=== PATIENT | male | born 1985 | race Caucasian/White ===

== ENCOUNTER 2024-02-02 04:00 | Day surgery (SDC) | payer OTHER ==
[~2024-02-02] VITALS: Ht 182.9 cm; Wt 81.0 kg
[2024-02-02] VITALS (187 sets, daily range): BP systolic 85–135; BP diastolic 49–90
--- NOTE | 2024-02-02 07:00 | NUR ---
Arrival & Pre-treatment Patient arrived to the ANR suite, identification and demographics confirmed. Patient to room 8, AAO, ambulatory, vitals obtained, ID/allergy/fall bands placed, changed into hospital gown, ZAC hose, and non-slip socks. Procedure and timeline explained for treatment and discharge. All questions answered and the patient presents no concerns at this time.
[2024-02-02] MEDS ORDERED: SCOPOLAMINE 1.5 MG DIS TD PRN (07:30)
[2024-02-02] MEDS ORDERED: PANTOPRAZOLE SODIUM Sesquihydr 40 MG/TAB PO PRN (07:30)
[2024-02-02] MEDS ORDERED: LACTATED RINGER'S 1,000 ML IV PRN ×3 (07:30→19:00)
[2024-02-02] MEDS ORDERED: cloNIDine HCL 0.1 MG/TAB PO PRN (07:30)
[2024-02-02] MEDS ORDERED: CYANOCOBALAMIN 500 MCG/TAB ( B12) PO PRN (07:30)
[2024-02-02] MEDS ORDERED: FAMOTIDINE 20 MG/TAB PO PRN (07:30)
[2024-02-02] MEDS ORDERED: ALBUTEROL SULFATE 2.5 MG VIAL IN PRN (07:30)
[2024-02-02] MEDS ORDERED: diazePAM 5 MG/TAB PO PRN ×2 (07:30→08:30)
--- NOTE | 2024-02-02 07:40 | NUR ---
Dr. Rivera telephoned with patient intake information including usage, dose, last dose/time taken and initial vital signs. Patient history and allergies reviewed with MD. Orders received for 10mg PO Valium and 0.1 mg PO Clonidine now. Will reassess per protocol in 1.5 hours and update MD with assessment and vitals. Patient medicated per MD orders. In addition to Clonidine and Valium, patient received 1000 mcg B12 PO, 20 mg Pepcid PO, and Scopolamine TD patch. Medication indication and education provided prior to administration.
[2024-02-02] MEDS ORDERED: ASCORBIC ACID 4,000 MG in SODIUM CHLORIDE 0.9% 1,000 ML IV SCH (08:00)
[2024-02-02 08:54] LABS: BASO% 0.5 % (0-3); EOS% 2.4 % (0-8); HEMATOCRIT 42.5 % (39.0-50.0); HEMOGLOBIN 13.9 g/dl (14.0-18.0); IMMATURE GRANULOCYTES 0.1 % (0.0-5.0); LYMPH% 23.6 % (15-41); MEAN CORPUSCULAR HGB 29.8 pG CALC (26.0-32.0); MEAN CORPUSCULAR HGB CONC 32.7 g/dL CAL (32.0-36.0); MONO% 11.9 % (2-13); NEUT# 5.34 thou/uL (1.82-7.42); NEUT% 61.5 % (42-76); RED BLOOD COUNT 4.67 mill/uL (4.70-6.10); RED CELL DISTRI WIDTH 11.9 % (11.5-15.5)
[2024-02-02] MEDS ORDERED: XANAX0.5 MG PO (09:06)
[2024-02-02 09:13] LABS: ALBUMIN 4.4 g/dL (3.2-5.0); BILIRUBIN, TOTAL 0.3 mg/dL (0.2-1.3); POTASSIUM 4.4 mmol/l (3.5-5.1); TOTAL PROTEIN 7.5 g/dL (6.3-8.2)
--- NOTE | 2024-02-02 09:23 | NUR ---
Patient resting comfortably in bed. Easily aroused, maintains focus, and drifts back to sleep. No signs of active withdrawal or distress noted at this time. Continuous SPO2, rhythm, and respiratory monitoring initiated. IVF @ 250 mL/HR, room air, VSS. DR. SUÁREZ AT THE BEDSIDE DISCUSSING PROCEDURE WITH PATIENT. QUESTIONS ASKED AND ANSWERED.
[2024-02-02] MEDS ORDERED: DEXAMETHASONE SODIUM PHOSPHATE PF 10 MG/ML SDV IV PRN ×2 (10:00→19:00)
[2024-02-02] MEDS ORDERED: cloNIDine HYDROCHLORIDE 100 MCG/ML 10 ML INJ IV PRN (10:00)
[2024-02-02] MEDS ORDERED: diazePAM 5 MG/TAB VT PRN (10:00)
[2024-02-02] MEDS ORDERED: LIDOCAINE HCL 1% (10MG/ML) 100 MG/10 ML MDV IV PRN (10:00)
[2024-02-02] MEDS ORDERED: MIDAZOLAM HCL 2 MG/2 ML VIAL IV PRN (10:00)
[2024-02-02] MEDS ORDERED: PROPOFOL 100 ML IV PRN (10:00)
[2024-02-02] MEDS ORDERED: NALTREXONE HCL 50 MG/TAB VT PRN (10:00)
[2024-02-02] MEDS ORDERED: ONDANSETRON HCl 4 MG/2 ML SDV IV PRN ×3 (10:00→19:00)
[2024-02-02] MEDS ORDERED: DiphenhydrAMINE HCL 50 MG/ML SDV IV PRN (10:00)
[2024-02-02] MEDS ORDERED: THIAMINE HCL 100 MG/ML 2ML VIAL IV PRN (10:00)
[2024-02-02] MEDS ORDERED: STERILE WATER FOR IRRIGATION 1,000 ML BTL IR PRN (10:00)
[2024-02-02] MEDS ORDERED: SUCCINYLCHOLINE CHLORIDE 20 MG/ML 10ML VIAL IV PRN (10:00)
[2024-02-02] MEDS ORDERED: ROCURONIUM BROMIDE 10 MG/ML 5ML VIAL IV PRN (10:00)
[2024-02-02] MEDS ORDERED: PROPOFOL 10 MG/ML 100ML VIAL IV PRN (10:00)
[2024-02-02] MEDS ORDERED: LIDOCAINE HCL 1% (10MG/ML) 100 MG/10 ML MDV VT PRN ×2 (10:00)
[2024-02-02] MEDS ORDERED: POTASSIUM CHLORIDE 10 MEQ/50 ML BAG IV PRN (10:00)
[2024-02-02] MEDS ORDERED: OCTREOTIDE ACETATE 100 MCG/VIAL SDV SC PRN (10:00)
[2024-02-02] MEDS ORDERED: MAGNESIUM SULFATE HEPTAHYDRATE 100 ML IV PRN (10:00)
[2024-02-02] MEDS ORDERED: cloNIDine HCL 0.1 MG/TAB VT PRN (10:00)
[2024-02-02] MEDS ORDERED: PHENYLEPHRINE HCL 10 MG/ML VIAL ONE (10:25)
[2024-02-02] MEDS ORDERED: SODIUM CHLORIDE 0.9% 250 ML IV ONE (10:25)
--- NOTE | 2024-02-02 10:30 | NUR ---
Dr. Rivera at bedside with patient discussing treatment and answering any questions or concerns patient might have.
--- NOTE | 2024-02-02 11:05 | NUR ---
Induction Note Patient to ANR procedure room. Time out performed at 1105. Patient placed on monitors, Ava hugger, bilateral wrist restraints applied for ET tube protection. Versed 5mg given IV push at 1110. Tourniquet applied to RIGHT arm Lidocaine 100mg given at 1111 IV push followed by Rocoronium 10mg at 1112 IV push and held for 90 seconds. Propofol bolus of 130mg given at 1114 IV push. Succinylcholine 80mg given IV push at 1115. Smooth intubation with 7.5 ETT. Positive CO2. Positive Auscultation for air exchange. Patient placed on ventilator for spontaneous ventilation. Placed on Propofol IV drip at 1116. OG inserted. Positive air on auscultation. Positive gastric content. Stomach washed at this time.
--- NOTE | 2024-02-02 11:30 | NUR ---
OG close note Stomach washed at this time. Naltrexone 50 mg with Clonidine 0.2 mg via OG tube. OG will be clamped for 45 minutes.
--- NOTE | 2024-02-02 12:15 | NUR ---
OG open note OG open at this time. Gastric content draining into drainage bag. OG to drain for 45 minutes. Propofol will be titrated down based on patient.
[2024-02-02] MEDS ORDERED: NALTREXONE50 MG PO (12:47)
[2024-02-02] MEDS ORDERED: CLONIDINE0.1 MG PO (12:47)
--- NOTE | 2024-02-02 13:00 | NUR ---
OG close note Stomach washed at this time. Naltrexone 50 mg with Clonidine 0.2 mg via OG tube. OG will be clamped for 45 minutes.
--- NOTE | 2024-02-02 14:30 | NUR ---
OG close note Stomach washed at this time. Naltrexone 50 mg with Clonidine 0.2 mg via OG tube. OG will be clamped for 45 minutes.
--- NOTE | 2024-02-02 16:15 | NUR ---
OG close note Stomach washed at this time. Naltrexone 0 mg with Clonidine 0.2 mg via OG tube. OG will be clamped for 30 minutes.
--- NOTE | 2024-02-02 16:45 | NUR ---
OG open note OG open at this time. Gastric content draining into drainage bag. OG to drain. Propofol will be titrated down based on patient.
--- NOTE | 2024-02-02 16:55 | NUR ---
Extubation note Closing medications given Benadryl 50mg IV push, Decadron 10mg IV push,Magnesium 4 grams IV, Zofran 8mg IV push, Octreotide 100mcg SC. Stomach washed out prior to extubation. Suctioned gastric content. OG removed. Patient extubated. Propofol Discontinued. Wrist restraints removed. Ava hugger Removed. See ANR Moderate sedate recovery record for further notes and assessment.
--- NOTE | 2024-02-02 17:09 | NUR ---
Patients spouse contacted with an update. questions asked and answered
--- NOTE | 2024-02-02 17:19 | NUR ---
TRANSER NOTE Patient transferred to medical-surgical unit.Report given to nurse at bedside. Head to toe assessment, treatment, medications, I/O, IV access reviewed with RN. All questions answered. IVF to continue at 100 ml/hr, NC @ 4L, no adventitious breath sounds. Safety precautions in place, bed locked and in lowest position, call light in reach. Handoff of care at the time this note.
--- NOTE | 2024-02-02 17:28 | NUR ---
avtar arrived to ms from anr beside report from Mannie; patient stable; vitals stable; on 2l 0f o2; breathing unlabored and even; no s.s of distress at this time; LR runnning at 100 on RAC; peronsal items in anr locker; eye covering applied to eyes; call light within reach; bedin lowest postion; saftey measures in place
[2024-02-02] MEDS ORDERED: ACETAMINOPHEN 1,000 MG/100 ML VIAL IV PRN (19:00)
[2024-02-02] MEDS ORDERED: LORazepam 2 MG/ML IV PRN ×2 (19:00)
[2024-02-02] MEDS ORDERED: ACETAMINOPHEN 500 MG TAB PO PRN (19:00)
[2024-02-02] MEDS ORDERED: PROMETHAZINE HCL 25 MG in SODIUM CHLORIDE 0.9% 50 ML IV PRN (19:00)
[2024-02-02] MEDS ORDERED: HALOPERIDOL LACTATE 5 MG/ML SDV IV PRN (19:00)
[2024-02-02] MEDS ORDERED: KETOROLAC TROMETHAMINE 30 MG/ML SDV IV PRN (19:00)
[2024-02-02] MEDS ORDERED: PROMETHAZINE HCL 12.5 MG in SODIUM CHLORIDE 0.9% 50 ML IV PRN (19:00)
[2024-02-02] MEDS ORDERED: PATIENT' OWN MED CONTROLLED 1 EA DOSE IV PRN (21:00)
[2024-02-02] MEDS ORDERED: cloNIDine HCL 0.1 MG/TAB PO SCH (23:00)
[2024-02-02] MEDS ORDERED: clonazePAM 1 MG/TAB PO PRN (23:00)
[2024-02-03] MEDS ORDERED: NALTREXONE HCL 50 MG/TAB PO ONE (00:45)
[2024-02-03 03:44] VITALS: BP 108/71
[2024-02-03] MEDS ORDERED: clonazePAM 1 MG/TAB PO PRN ×2 (04:00→08:00)
[2024-02-03] MEDS ORDERED: NALTREXONE HCL 50 MG/TAB PO SCH ×2 (04:00→08:30)
[2024-02-03] MEDS ORDERED: cloNIDine HCL 0.1 MG/TAB PO PRN (04:00)
--- NOTE | 2024-02-03 04:25 | NUR ---
ADMINSITERED SCHEDULED MEDS PER EMAR. PT TOLERATED WELL. PT IS A/O TO SELF AND PALCE, REORIENTATION NEEDED FOR TIME. PT STATES "FEELING LIKE CRAP" BUT ALSO STATED "I KNOW I WOULD FEEL WORSE IF I WAS ACTUALLY GOING THROUGH WITHDRAWAL" REMINDED PT THAT THIS NIGHT WAS THE HARDEST AND WILL HAVE IMPROVEMENTS EVERYTIME HE WAKES UP. PT DENIES AND N/V/P AT THIS TIME. PT IS ON RM AIR. VSS. HAS BEEN ABLE TO AMBULATE TO BATHROOM WITH STANDY BY ASSIST. PT CURRENTLY LAYING IN BED ON RT SIDE. IVF RUNNING PER EMAR. NO S/S OF DISTRESS. BED ALARM ON AND SAFETY PRECAUTIONS IN PLACE.
[2024-02-03 04:41] LABS: BASO% 0.1 % (0-3); HEMATOCRIT 36.8 % (39.0-50.0); HEMOGLOBIN 12.6 g/dl (14.0-18.0); IMMATURE GRANULOCYTES 0.1 % (0.0-5.0); LYMPH% 11.5 % (15-41); MEAN CORPUSCULAR HGB 30.1 pG CALC (26.0-32.0); MEAN CORPUSCULAR HGB CONC 34.2 g/dL CAL (32.0-36.0); MONO% 4.5 % (2-13); NEUT# 5.74 thou/uL (1.82-7.42); NEUT% 83.8 % (42-76); RED BLOOD COUNT 4.18 mill/uL (4.70-6.10); RED CELL DISTRI WIDTH 11.7 % (11.5-15.5)
[2024-02-03 04:53] LABS: ALBUMIN 3.7 g/dL (3.2-5.0); CREATININE 0.8 mg/dL (0.7-1.3); MAGNESIUM 2.2 mg/dL (1.6-2.3); POTASSIUM 4.2 mmol/l (3.5-5.1); TOTAL PROTEIN 6.4 g/dL (6.3-8.2)
[2024-02-03 05:04] LABS: BILIRUBIN, TOTAL 0.6 mg/dL (0.2-1.3)
[2024-02-03] MEDS ORDERED: cloNIDine HCL 0.1 MG/TAB PO SCH ×2 (08:00→08:30)
[2024-02-03] MEDS ORDERED: ACETAMINOPHEN 325 MG/TAB PO SCH (08:00)
[2024-02-03] MEDS ORDERED: PANTOPRAZOLE SODIUM Sesquihydr 40 MG/TAB PO SCH (08:00)
--- NOTE | 2024-02-03 08:00 | NUR ---
PATIENT A/O X3 ; ROOM AIR; BREATHING UNLABORED AND EVEN; DENIED ANY PAIN; DENIED ANY N/D/V AT THIS TIME; PATIENT STATES' I FEEL BAD BUT I DO FEEL BETTER THEN WHEN I WITHDRAWLED IN THE PAST' IV SITE INTACT AND WORKING WITH LR@100; PERSONAL ITEMS IN ANR LOCKER'; NO S.S OF DISTRESS AT THIS TIME; NO COMPLAINTS; PATIENT KEEPS TALKING ABOUT WHERE HE WOULD GET HIS DRUGS FROM AND HOW PURE IT ITS ETC; CALL LIGHT WITHIN REACH,VERBALIZED UNDERSTANDING ON HOW TO USE, PERSONAL ITEMS WITHIN REACH, BED IN LOWEST POSTION; SAFETY MEASURES IN PLACE
[2024-02-03 08:41] VITALS: BP 108/71
[2024-02-03] MEDS ORDERED: ACETAMINOPHEN 500 MG TAB PO PRN (09:00)
[2024-02-03] MEDS ORDERED: Cholecalciferol 2,000 UNIT/TAB PO PRN (09:00)
[2024-02-03] MEDS ORDERED: MAGNESIUM OXIDE 400 MG/TAB PO PRN (09:00)
--- NOTE | 2024-02-03 09:02 | NUR ---
PATIENT ASKING TO LEAVE, INFORMED PATINET THAT DISCHARGE IS NOT UNTILL THIS AFTERNOON WHEN MIRNA COMES BACK TO SEE HIM ;PATIENT STATES ' I DONT LIKE BEING CONFIND" INFORMED PATIENT THAT HE IS MORE THEN WELCOMED TO WALK IN HIS ROOM AND THE [facility] WELL TAKE A SHOWER BUT WE CANT NOT LEAVE THE FLOOR; PATIENT AWARE AND STATES; THEY DID NOT TELL ME THAT:
--- NOTE | 2024-02-03 10:26 | NUR ---
patient asking can he leave, informed patient that he must wait on [facility] for discharge and that discharge is not until around 4; just needs to rest or take a shower or walk
--- NOTE | 2024-02-03 12:32 | NUR ---
patient in shower at this time, with alot of encouraging to push himself to move around, educated patient that for recovery to be sucessful he has to motivate himself to move; harvey hernandez in place
--- NOTE | 2024-02-03 14:26 | NUR ---
avtar tolerated discharge medications; and ambulated down hallway with no issues
--- NOTE | 2024-02-03 15:16 | NUR ---
IV site discontinued, cath intact. No edema , no redness, voices no discomfort. Discharge instructions given. Patient verbalizes understanding of same. Discharged in stable condition via Ambulatory to Home with family. All belongings sent with pt.
[2024-02-04] MEDS ORDERED: NALTREXONE HCL 50 MG/TAB PO SCH (16:39)
[2024-02-04] MEDS ORDERED: KETOROLAC TROMETHAMINE 30 MG/ML SDV IV PRN (16:40)
[2024-02-04] MEDS ORDERED: FAMOTIDINE 20 MG/TAB PO SCH (16:40)
[2024-02-04] MEDS ORDERED: ONDANSETRON HCl 4 MG/2 ML SDV IV PRN (16:45)
[2024-02-04] MEDS ORDERED: LACTATED RINGER'S 1,000 ML IV SCH (17:00)
[2024-02-04] MEDS ORDERED: POTASSIUM CHLORIDE 20 MEQ/TAB PO SCH (21:00)
== END 2024-02-03 15:00 | disposition home or self-care (01) | DRG 897 ==
LOC: MS2 04:00 → ANR 04:00 → MS2 07:43 → ANR 10:00 → MS2 17:15 → ANR 02-03 15:00
PROVIDERS: ATTEND Anesthesiology
DX: F11.20 Opioid dependence, uncomplicated (principal)
CPT/HCPCS: J1100; J2060; J2354; J3475